=== PATIENT | male | born 1985 | race African-American/Black ===

== ENCOUNTER 2024-07-24 12:22 | Emergency (ER) | payer OTHER, SELFPAY ==
[2024-07-24 12:49] VITALS: BP 129/92; PULSE 87; RESP 18; TEMP 36.8; O2SAT 97; BMI 33.8
--- NOTE | 2024-07-24 12:54 | ED.GENADULT ---
HPI - General Adult General Chief complaint: General Medical Stated complaint: Poison Heavy ?STD Etc Time Seen by Provider: 07/24/24 14:32 Source: patient, RN notes reviewed and old records reviewed Mode of arrival: ambulatory History of Present Illness ED Provider: Emmie Calderón PA-C HPI narrative: 38-year-old male no significant past medical history presenting to the ED complaining of poison maddy to bilateral upper extremities s/p doing yard work 3 days ago. Also requesting STI testing as has been having unprotected intercourse with multiple partners and does not currently have a primary care doctor. Reports some urinary hesitancy. Denies dysuria, hematuria, penile lesions/erythema, swelling, abdominal pain/flank pain Related Data Previous Rx's ?Medication ?Instructions ?Recorded doxycycline hyclate 100 mg tablet 100 mg PO BID 7 days #14 tabs 07/24/24 hydrocortisone 1 % topical cream 1 appl topical BID PRN rash #28.35 07/24/24 (Anti-Itch (hydrocortisone)) grams Allergies Allergy/AdvReac Type Severity Reaction Status Date / Time No Known Allergies Allergy Verified 07/24/24 12:53 Review of Systems Review of Systems: Yes all other systems are reviewed and are negative Constitutional: Constitutional: Reports as per [facility] Past Medical History Attestation statement: The following information was validated with the patient. Source: old records reviewed Social History Social History Smoked in Last 30 Days: No Use of substances other than those prescribed or required for medical reasons: No Advance Directives: No Advance Directives Information Provided: Yes Do you have a plan to hurt others: No Plan Physical Exam ED Vital Signs: Vital Signs - 24 hr 07/24/24 12:49 Temperature 98.3 F Pulse Rate 87 Respiratory Rate 18 Blood Pressure 129/92 H Pulse Oximetry 97 Oxygen Delivery Method Room Air BMI result Body Mass Index 33.8 Const General: cooperative, healthy appearing and no acute distress Orientation/consciousness: patient oriented x3 Limitations: no limitations HENMT Head: Yes normal to inspection and Yes atraumatic Ears: hearing grossly normal bilaterally General nose exam: Normal external nose present Face and sinus: Yes normal facial exam Eyes General: appearance normal, both eyes and all related structures EOM: EOMs intact bilaterally Neck Neck: Yes normal visual inspection and Yes no meningeal signs Resp Effort & Inspection: normal respiratory effort and no respiratory distress Cardio Rate: regular rate Skin Other: Poison maddy rash noted to bilateral upper extremities. No overlying erythema. No pus drainage. No fluctuance/induration or warmth. No lymphangitis. No palm/sole or mucous membrane involvement Wounds: no wounds Neuro General: patient oriented x3, tone normal and no meningeal signs Cranial nerves: Yes CN's II-XII intact bilaterally Gait exam (Neuro): Normal gait present Extrem General: Yes normal to inspection Course Course Course Narrative: RME: 38 yold male presents to the ED for poison MADDY rash since Monday. pATIENT HAS ITCHY RASH ON both arms. Patient also would like to have blood work due to history of unprotected sex. Patient states last unprotected sex exposure was last month. Patient would like HIV test. Labs ordered. Oral exam negative for signs of anaphylaxis. -labs reassuring including negative UA -gonorrhea/chlamydia and syphilis testing currently pending, patient will be contacted with positive results only. Directed to [facility] for further STI testing > patient empirically treated with IM Rocephin and p.o. doxycycline in the ED Results discussed with patient including worrisome signs and symptoms and strict return precautions, and when to return to the emergency department. They verbalized understanding and feel safe for discharge at this time. Medications Administered Discontinued Medications Generic Name Dose Route Start Last Admin Trade Name Jazlyn PRN Reason Stop Dose Admin Ceftriaxone Sodium 500 mg/ 0 mg 07/24/24 14:33 07/24/24 15:27 Lidocaine HCl 1 ml IM 07/24/24 14:34 500 kit ONCE ONE Administration Doxycycline Monohydrate 100 mg 07/24/24 14:33 07/24/24 15:27 Doxycycline Monohydrate 100 Mg Capsule PO 07/24/24 14:34 100 mg ONCE ONE Administration Medical Decision Making Medical Decision Making [facility] Narrative: 38-year-old male no significant past medical history presenting to the ED complaining of poison maddy to bilateral upper extremities s/p doing yard work 3 days ago. Also requesting STI testing as has been having unprotected intercourse with multiple partners and does not currently have a primary care doctor. On exam vital signs stable, NAD, nontoxic appearing, physical exam as noted above consistent with poison maddy without overlying/superimposed cellulitis. Concern for STI Discussed with patient we do not perform routine HIV testing in the ED however will refer to [facility] for further STI testing Will test for syphilis/CT/NG in the ED. Patient would like empiric treatment for gonorrhea/chlamydia, will receive IM Rocephin and p.o. doxycycline in the ED Plan: Labs, UA, STI testing Please refer to course for remaining clinical decision making, interpretation of labs/imaging results, and discussions with consultants and/or family members. Differential Diagnosis Differential Diagnoses: The differential diagnosis associated with the presentation includes As above Lab Data MDM Lab Attestation statement: I reviewed the patient's lab results. 07/24/24 13:44 07/24/24 13:44 Labs: Lab Results 07/24/24 Range/Units 13:44 WBC 5.3 (4.8-10.8) X10*3/uL RBC 4.17 L (4.60-5.80) X10*6/uL Hgb 13.5 L (14.0-18.0) g/dl Hct 39.7 L (42.0-52.0) % MCV 95.2 (80.0-98.0) fL MCH 32.4 (27.0-33.0) pg MCHC 34.0 (31.0-36.0) g/dl RDW 12.3 (11.0-16.0) % Plt Count 280 (160-400) X10*3/uL MPV 10.0 (9.4-12.4) fL Immature Gran % (Auto) 0.6 H (0.0-0.4) % Neut % (Auto) 71.9 (45-73) % Lymph % (Auto) 18.1 L (20-40) % [place] % (Auto) 7.8 (2-11) % Eos % (Auto) 1.0 (0-4) % Baso % (Auto) 0.6 (0-2) % Lymph # (Auto) 1.0 L (1.2-4.9) X10*3/uL [place] # (Auto) 0.4 (0.1-1.2) X10*3/uL Eos # (Auto) 0.1 (0.0-0.4) X10*3/uL Baso # (Auto) 0.0 (0.0-0.2) X10*3/uL Abs Immat Gran (auto) 0.03 (0.00-0.03) X10*3/uL Absolute Neuts (auto) 3.8 (2.0-8.3) x10*3/uL Absolute Nucleated RBC 0.000 (0.0-0.012) X10*3/uL Nucleated RBC % (auto) 0.0 (0.0-0.2) /100WBC Sodium 137 (135-145) mmol/L Potassium 3.9 (3.3-5.1) mmol/L Chloride 107 (96-108) mmol/L Carbon Dioxide 24 (22-29) mmol/L Anion Gap 10 L (12-20) BUN 11 (9-16) mg/dL Creatinine 1.00 (0.5-1.4) mg/dL Estim Creat Clear Calc 121.3 Estimated GFR > 60 Random Glucose 100 (60-115) mg/dL Calcium 9.1 (8.4-10.2) mg/dL Total Bilirubin 0.5 (0.0-1.0) mg/dL AST 20 (5-37) U/L ALT 24 (0-40) U/L Alkaline Phosphatase 81 (39-117) U/L Total Protein 7.3 (6.5-8.0) g/dL Albumin 4.8 (3.5-5.0) g/dL Urine Color Yellow Urine Appearance Clear Urine pH 5.5 (5.0-9.0) Ur Specific Bly 1.025 (1.005-1.025) Urine Protein 30 (1+) H (Neg-Trace) mg/dL Urine Glucose (UA) Negative (Negative) mg/dL Urine Ketones Trace (Negative) mg/dL Urine Blood Negative (Negative) Urine Nitrite Negative (Negative) Ur Leukocyte Esterase Negative (Negative) Urine RBC 0-2 (0-2) /HPF Urine WBC 0-5 (0-5) /HPF Ur Squamous Epith Cells 0-2 (0-2) /HPF Urine Bacteria None Seen (None Seen) Hyaline Casts 0-2 (0-2) /LPF T.pallidum Ab (EIA) Nonreactive (Nonreactive) Chlam trachomat DNA PCR NOT DETECTED (Not Detect.) N.gonorrhoeae DNA (PCR) NOT DETECTED (Not Detect.) External Record Review External record reviewed: Inpatient record, Office record, Outpatient record, Prior outpatient labs, Prior outpatient radiology, Primary care record and Outside ED record Tests considered The following testing was considered but not selected: As above Prescription Management I considered prescription management with: Pain Medication and Antibiotic Chronic Conditions Patient?s care impacted by: Other Social Determinants Patient?s care significantly limited by Social Determinants of Health including: Other Social Determinant of Health Discharge Plan Discharge Clinical Impression: Poison maddy, Sexually transmitted disease (STD) Patient Disposition: Home, Self-Care Instructions: Sexually Transmitted Diseases (ED), Poison Maddy (ED) Additional Instructions: Topical hydrocortisone as a steroid cream that will help with poison maddy, apply to rash only Doxycycline as an antibiotic please take as prescribed until completion. This will treat chlamydia You were given a shot to treat gonorrhea You were tested for gonorrhea, chlamydia, and syphilis these are all currently pending, you will be contacted with positive results only. Please go to [facility] for further STI testing including HIV If refrain from any sexual contact until you know the results of your testing Prescriptions: New doxycycline hyclate 100 mg tablet 100 mg PO BID 7 Days Qty: 14 0RF hydrocortisone [Anti-Itch (HC)] 1 % cream 1 appl topical BID PRN (Reason: rash) Qty: 28.35 0RF Referrals: [facility] [Provider Group] Interventions: ED Discharge Assessment Last Done: 07/24/24 15:36 Discharge Date/Time: 07/24/24 15:37 Print Language: Welsh
[2024-07-24 13:49] LABS: MANUAL DIFF FLAG NO
[2024-07-24 13:56] LABS: Appearance Urine Clear; Basophils Percent Auto 0.6 % (0-2); Color Urine Yellow; Eosinophils Absolute Auto 0.1 X10*3/uL (0.0-0.4); Glucose Urine UA Negative (Negative); Hematocrit 39.7 % (42.0-52.0); Hemoglobin 13.5 g/dl (14.0-18.0); Imm Gran Abs Auto 0.03 X10*3/uL (0.00-0.03); Imm Gran Pct Auto 0.6 % (0.0-0.4); Leukocyte Esterase Urine Negative (Negative); Lymphocytes Percent Auto 18.1 % (20-40); Mean Corpuscular Hemoglobin 32.4 pg (27.0-33.0); Mean Corpuscular Volume 95.2 fL (80.0-98.0); Monocytes Absolute Auto 0.4 X10*3/uL (0.1-1.2); Monocytes Percent Auto 7.8 % (2-11); Neutrophils Absolute Auto 3.8 x10*3/uL (2.0-8.3); Neutrophils Percent Auto 71.9 % (45-73); Nitrite Urine Negative (Negative); PH 5.5 (5.0-9.0); Platelet Count 280 X10*3/uL (160-400); Red Blood Count 4.17 X10*6/uL (4.60-5.80); Red Cell Distribution Width 12.3 % (11.0-16.0); Specific Gravity - Urine 1.025 (1.005-1.025); UMIC TRIGGER UACC YES; Urine Blood Negative (Negative); Urine Ketones Trace mg/dL (Negative); Urine Protein 30 (1+) mg/dL (Neg-Trace); White Blood Count 5.3 X10*3/uL (4.8-10.8)
[2024-07-24 14:01] LABS: Bacteria Urine None Seen (None Seen); Hyaline Casts Urine 0-2 /LPF (0-2); RBC Urine 0-2 /HPF (0-2); Squamous Epithelial Cell Urine 0-2 /HPF (0-2); WBC Urine 0-5 /HPF (0-5)
[2024-07-24 14:06] LABS: Alanine Aminotransferase 24 U/L (0-40); Albumin Level 4.8 g/dL (3.5-5.0); Alkaline Phosphatase 81 U/L (39-117); Anion Gap 10 (12-20); Aspartate Amino Transferase 20 U/L (5-37); Bilirubin Total 0.5 mg/dL (0.0-1.0); Blood Urea Nitrogen 11 mg/dL (9-16); Calcium 9.1 mg/dL (8.4-10.2); Carbon Dioxide 24 mmol/L (22-29); Chloride 107 mmol/L (96-108); Creatinine Clr Calc Pharmacy 121.3; Estimated Glomerular Filt Rate > 60; Glucose Random 100 mg/dL (60-115); Potassium 3.9 mmol/L (3.3-5.1); Sodium 137 mmol/L (135-145); Total Protein 7.3 g/dL (6.5-8.0)
[2024-07-24 15:27] LABS: CT PCR NOT DETECTED (Not Detect.); NG PCR NOT DETECTED (Not Detect.)
[2024-07-24] MEDS: cefTRIAXone sodium 500 MG, Lidocaine HCl 1 % MPF 1 ML IM (15:27)
[2024-07-24] MEDS: Doxycycline Monohydrate 100 MG CAPSULE PO (15:27)
[2024-07-24 15:36] VITALS: BP 129/92; PULSE 87; RESP 18; TEMP 36.8; O2SAT 97
[2024-07-25 07:56] LABS: Syphilis Screen Nonreactive (Nonreactive)
[2024-07-26 11:26] LABS: HIV AB/AG Nonreactive (Nonreactive); HIV Num 1 0.07 S/CO (0.00-0.99)
== END 2024-07-24 15:37 | disposition home or self-care (01) ==
PROVIDERS: Physician Assistant; Emergency Provider Emergency Medicine Emergency Medical Services
DX: L23.7 Allergic contact dermatitis due to plants, except food (principal); R21 Rash and other nonspecific skin eruption; Z20.2 Contact with and (suspected) exposure to infections with a predominantly sexual mode of transmission
CPT/HCPCS: 36415; 80053; 81001; 85025; 86780; 87389; 87491; 87591; 96372; 99283; 99284; J0696; J2003